=== PATIENT | female | born 1965 | race Caucasian/White ===

== ENCOUNTER 2017-09-05 22:29 | Emergency (ER) | payer MEDICAID, OTHER ==
[~2017-09-05] VITALS: Ht 154.9 cm; Wt 102.1 kg
[~2017-09-05 22:29] MED LIST: LEVO500T6 PO; METR250T2 PO
[2017-09-05 22:45] VITALS: BP 145/62
--- NOTE | 2017-09-05 22:55 | NUR ---
51/F BIBA FOR CHEST PAIN SINCE YESTERDAY MORNING. PT REPORTS 8/10 PRESSURE, NONRADIATING, CONSTANT. PT REPORTS SHE WAS LYING DOWN PRIOR TO CP ONSET. DENIES TAKING MED FOR CP. DENIES SOB, SATS 98%RA, 125HR. AOX4, ABLE TO SPEAK AT FULL LENGTH WITHOUT DIFFICULTIES. PT IS JAUNDICED. PMH: DM, ANEMIA, CIRRHOSIS. EKG DONE. PT PLACED ON GAS DISTRIBUTION SUPERVISOR AND PULSE OX.
--- NOTE | 2017-09-05 22:55 | NUR ---
PT PLACED IN BED 11 BY EMS.
[2017-09-05] MEDS ORDERED: ONDANSETRON 4 MG/2 ML VIAL IVP ONE (23:05)
[2017-09-05] MEDS ORDERED: MORPHINE SULFATE 2 MG/ML SYR IVP ONE (23:05)
[2017-09-05 23:41] LABS: CARBON DIOXIDE 24.7 mmol/L (21-32); CREATININE 1.2 mg/dL (0.6-1.3); POTASSIUM 4.7 mmol/L (3.5-5.1)
[2017-09-05 23:46] LABS: PROTHROMBIN TIME 13.2 secs (10.8-13.4)
[2017-09-05 23:47] LABS: ALBUMIN 2.9 g/dL (3.4-5.0); TOTAL BILIRUBIN 6.1 mg/dL (0.0-1.0)
--- NOTE | 2017-09-05 23:48 | NUR ---
Patient being evaluated by physician at bedside.
[2017-09-05 23:55] LABS: LYMPHOCYTES # (AUTO) 0.9 K/uL (2.5-16.5); MEAN CORPUSCULAR HEMOGLOBIN 35 pg (27-31); MONOCYTES # (AUTO) 0.3 K/uL (0.8-1.0); NEUTROPHILS # (AUTO) 2.3 K/uL (1.8-7.7)
[2017-09-05 23:57] LABS: BASOPHILS % (AUTO) 0.8 % (0.0-2.0); LYMPHOCYTES % (AUTO) 25.8 % (20.5-51.1); MEAN CORPUSCULAR HGB CONC 35 g/dL (33-37); MEAN CORPUSCULAR VOLUME 101 fL (80-94); MONOCYTES % (AUTO) 9.6 % (1.7-9.3); NEUTROPHILS % (AUTO) 62.8 % (42.2-75.2); PLATELET COUNT (AUTO) 109 K/uL (140-450); RED BLOOD CELL COUNT(AUTO) 1.35 MIL/uL (4.20-5.40); RED CELL DISTRIBUTION WIDTH 19.3 % (11.6-13.7); WHITE BLOOD COUNT (AUTO) 3.5 K/uL (4.8-10.8)
[2017-09-06 00:03] LABS: HEMOGLOBIN 4.7 g/dL (12.0-16.0)
[2017-09-06 00:04] LABS: HEMATOCRIT 13.7 % (36-48)
--- NOTE | 2017-09-06 00:45 | NUR ---
ER MD HOWELL MADE AWARE OF CURRENT VS, NO FURTHER ORDERS RECEIVED
[2017-09-06 01:32] VITALS: BP 131/57
--- NOTE | 2017-09-06 01:32 | NUR ---
Patient discharged with v/s stable. Written and verbal after care instructions given and explained. Patient verbalized understanding. Wheel Chair Assisted with ROGER CADENA to car. All questions addressed prior to discharge. Advised to follow up with PMD. IV removed, catheter intact and site benign. Applied folded 4x4 gauze and tape to stop bleeding. Addendum: 09/06/17 at 0135 by HOMER DAUGHTER ADVISED TO SETUP APPOINTMENT WITH [facility] SOON POSSIBLE
== END 2017-09-06 01:32 | disposition home or self-care (01) ==
LOC: MED 22:29
DX: D58.9 Hereditary hemolytic anemia, unspecified (principal); E80.6 Other disorders of bilirubin metabolism; Z88.1 Allergy status to other antibiotic agents; K74.60 Unspecified cirrhosis of liver
CPT/HCPCS: 36415; 71010; 80053; 82140; 82948; 83625; 83880; 84100; 84484; 85025; 85610; 85730; 86886; 86900; 86901; 86920; 93005; 96374; 96375; 99285; J2270; J2405; Q0092

== ENCOUNTER 2018-09-25 22:44 | Inpatient (IN) | payer OTHER ==
[~2018-09-25] VITALS: Ht 167.6 cm; Wt 97.5 kg
[2018-09-25 22:48] VITALS: BP 117/72
--- NOTE | 2018-09-25 22:51 | NUR ---
PT TAKEN TO BED 5
--- NOTE | 2018-09-25 23:40 | NUR ---
PT BIB DAUGHTER FOR DIARRHEA FOR 3 DAYS AND "COLD" SYMPTOMS AND PAIN TO LEFT FLANK. PT HAS HX OF LIVER CIRROHSIS, AND GALL BLADDER RUPTURE. PT SKIN IS DRY, AND JAUNDICED. PT IS LAYING IN BED , AWAKE , DAUGHTER AT BEDSIDE. ABD IS ROUND, SOFT, NON TENDER , HYPOACTIVE BS X4.
--- NOTE | 2018-09-25 23:48 | NUR ---
Dr. Martinez evaluating patient at bedside.
--- NOTE | 2018-09-26 00:20 | NUR ---
Patti bailey in [facility] - 09/26/18 at [address]18 [address] JOSE PT [address] CT SCAN
--- NOTE | 2018-09-26 00:20 | NUR ---
PT TO XRAY
[2018-09-26 00:42] LABS: MEAN CORPUSCULAR HEMOGLOBIN 32 pg (27-31); MEAN CORPUSCULAR HGB CONC 33 g/dL (33-37); MEAN CORPUSCULAR VOLUME 98.4 fL (80-94); PLATELET COUNT (AUTO) 175 K/uL (140-450); RED BLOOD CELL COUNT(AUTO) 1.88 MIL/uL (4.20-5.40); WHITE BLOOD COUNT (AUTO) 10.7 K/uL (4.8-10.8)
--- NOTE | 2018-09-26 00:49 | NUR ---
PT RETURN FROM RADIOLOGY
--- NOTE | 2018-09-26 01:00 | NUR ---
PT LAYING IN BED SLEEPIN, EASILY AROUSABLE, VSS, WILL CONTINUE TO MONITOR.
[2018-09-26 01:12] LABS: PROTHROMBIN TIME 13.1 secs (10.8-13.4)
--- NOTE | 2018-09-26 01:15 | NUR ---
IN N OUT CATHERTERIZATION PERFORMED, APPROX 400 ML YELLOW CLEAR URINE RETURNED, PT TOLERATED PROCEDURE WELL, SPECIMEN SENT TO LAB, PT POSITIONED TO COMFORT AFTER.
[2018-09-26 01:25] LABS: ANION GAP 17.4 (8-16); CREATININE 1.4 mg/dL (0.6-1.3); POTASSIUM 4.4 mmol/L (3.5-5.1); TOTAL BILIRUBIN 2.1 mg/dL (0.0-1.0)
[2018-09-26 01:35] LABS: HEMATOCRIT 18.6 % (36-48); HEMOGLOBIN 6.1 g/dL (12.0-16.0)
[2018-09-26 01:38] LABS: LYMPHOCYTES % (MANUAL) 5 % (20-46); MONOCYTES % (MANUAL) 3 % (5-12)
[2018-09-26] MEDS ORDERED: INSULIN REGULAR, HUMAN 100 UNIT/ML VIAL IVP ONE (01:40)
[2018-09-26] MEDS ORDERED: NACL 0.9% 1,000 ML IV ONE ×3 (01:40→02:15)
[2018-09-26] MEDS ORDERED: metroNIDAZOLE 500 MG/NS PREMIX 100 ML IV ONE (01:45)
[2018-09-26] MEDS ORDERED: MORPHINE SULFATE 4 MG/ML SYR IVP PRN (02:15)
[2018-09-26] MEDS ORDERED: DEXTROSE 50% 50 ML SYR IVP PRN (02:15)
[2018-09-26] MEDS: NACL 0.9% 1,000 ML IV SCH ×3 (02:15→18:15)
[2018-09-26] MEDS ORDERED: ACETAMINOPHEN 325 MG TAB PO PRN (02:15)
--- NOTE | 2018-09-26 02:30 | NUR ---
PT DIAPER CHANGED, SCANT AMOUNT OF DIARRHEA NOTED, PT POSITIONED TO COMFORT AFTER.
--- NOTE | 2018-09-26 03:00 | NUR ---
ADMITTED PT FROM ER VIA [facility]. DX: ABD PAIN, DIARRHEA, ANEMIA, HYPERGLYCEMIA. AAOX4. NO C/O PAIN AT THIS TIME. NO RESP DISTRESS NOTED. ON ROOM AIR. PT'S DAUGHTER AT BEDSIDE. IV TO LEFT FA #22G, PATENT AND INTACT. ORIENTED PT TO ROOM. DISCUSSED PLAN OF CARE, PT VERBALIZED UNDERSTANDING. SAFETY PRECAUTION IN PLACE. CALL LIGHT WITHIN REACH.
--- NOTE | 2018-09-26 03:00 | NUR ---
Patient will be admitted to care of DR PANDA. Admited to TELE. Will go to [id number]. Belongings list completed. Report to SURINDER RUBIN.
[2018-09-26] MEDS: LEVOFLOXACIN 250 MG/D5 PREMIX 50 ML IV SCH (03:36)
[2018-09-26 04:00] VITALS: BP 104/56
[2018-09-26] MEDS: BLOOD GLUCOSE MONITORING 1 DEV DEV FS SCH ×6 (04:09→23:34)
[2018-09-26] MEDS: INSULIN LISPRO SLIDING SCALE 100 UNITS/ML VIAL SUBQ PRN ×6 (04:10→23:33)
--- NOTE | 2018-09-26 04:10 | NUR ---
BLOOD SUGAR CHECKED 585. DR. ZAPATA ORDERED 15 UNITS HUMALOG SUBQ.
[2018-09-26 05:03] LABS: APPEARANCE,URINE CLEAR (CLEAR); BILIRUBIN,URINE NEGATIVE (NEGATIVE); BLOOD, URINE NEGATIVE (NEGATIVE); COLOR,URINE YELLOW (YELLOW); LEUKOCYTE ESTERASE ,URINE NEGATIVE (NEGATIVE); NITRITE, URINE NEGATIVE (NEGATIVE); RBC,URINE 0-5 (RARE) /HPF (0-5); UGLUCOSE 3+ (NEGATIVE); WBC,URINE 0-5 (RARE) /HPF (0-5)
--- NOTE | 2018-09-26 06:16 | NUR ---
PT LEFT THE UNIT FOR CT ABDOMEN/PELVIS W/O CONTRAST. NO C/O PAIN OR SOB. PT IN STABLE CONDITION.
--- NOTE | 2018-09-26 06:30 | NUR ---
PT CAME BACK FROM CT. NO C/O PAIN OR SOB.
--- NOTE | 2018-09-26 07:30 | NUR ---
ENDORSED PT TO DAY SHIFT NURSE. PT IN STABLE CONDITION.
[2018-09-26 08:00] VITALS: BP 116/53
--- NOTE | 2018-09-26 08:00 | NUR ---
SPOKE WITH DR PANDA, REPORTED LACTIC ACID 2.5. DR PANDA SAID WILL REPEAT TOMORROW.
--- NOTE | 2018-09-26 08:21 | NUR ---
PATIENT HAS BEEN SCREENED AND CATEGORIZED HIGH NUTRITION RISK. PATIENT WILL BE SEEN WITHIN 1-2 DAYS OF ADMISSION. 09/26/18-09/27/[address]
[2018-09-26] MEDS: INSULIN LANTUS 100 UNITS/ML 10 ML VIAL SUBQ SCH ×2 (08:42→21:22)
--- NOTE | 2018-09-26 08:45 | NUR ---
PAGED DR JACKSON WHO IS COVERING DR PANDA, REGARDING BS 469. HUMALOG 14 UNITS GIVEN ACCORDING TO SLIDING SCALE. LANTUS 12UNITS GIVEN SCHEDULED. Addendum: 09/26/18 at 0913 by Wiliam Ventura RN STILL WAITING FOR CALL BACK
--- NOTE | 2018-09-26 09:25 | NUR ---
DR PANDA CALLED BACK, NO NEW ORDERS FOR BLOOD SUGAR AT THIS TIME.
[2018-09-26 09:28] LABS: BASOPHILS % (AUTO) 0.1 % (0.0-2.0); EOSINOPHILS % (AUTO) 0.3 % (0.0-4.0); LYMPHOCYTES # (AUTO) 0.6 K/uL (2.5-16.5); LYMPHOCYTES % (AUTO) 5.9 % (20.5-51.1); MEAN CORPUSCULAR HEMOGLOBIN 33 pg (27-31); MEAN CORPUSCULAR HGB CONC 34 g/dL (33-37); MEAN CORPUSCULAR VOLUME 97.6 fL (80-94); MONOCYTES # (AUTO) 0.3 K/uL (0.8-1.0); MONOCYTES % (AUTO) 3.4 % (1.7-9.3); NEUTROPHILS # (AUTO) 8.5 K/uL (1.8-7.7); NEUTROPHILS % (AUTO) 90.3 % (42.2-75.2); PLATELET COUNT (AUTO) 157 K/uL (140-450); RED BLOOD CELL COUNT(AUTO) 1.55 MIL/uL (4.20-5.40); RED CELL DISTRIBUTION WIDTH 14.5 % (11.6-13.7); WHITE BLOOD COUNT (AUTO) 9.5 K/uL (4.8-10.8)
[2018-09-26 09:54] LABS: HEMATOCRIT 15.1 % (36-48); HEMOGLOBIN 5.1 g/dL (12.0-16.0)
--- NOTE | 2018-09-26 10:15 | NUR ---
SPOKE WITH DR PANDA REGARDING HGB 5.1, MADE DR AWARE THAT 1 UNIT RBC ORDERED BY ER DOC HOWEVER, STILL WAITING FOR BLOOD BANK TO MATCH PT'S ANTIBODIES. DR PANDA SAID TO ORDER TOTAL OF 2 BAG SINCE MATCHING TAKES A LONG TIME. ONE ADDITIONAL BAG ORDERED, CALLED BLOOD BANK, STILL NOT READY BUT WILL LET ME KNOW VERNA.
[2018-09-26 10:33] LABS: ALBUMIN 2.5 g/dL (3.4-5.0); ANION GAP 16.4 (8-16); CARBON DIOXIDE 22.1 mmol/L (21-32); CREATININE 1.1 mg/dL (0.6-1.3); POTASSIUM 3.5 mmol/L (3.5-5.1); TOTAL BILIRUBIN 1.7 mg/dL (0.0-1.0)
--- NOTE | 2018-09-26 10:48 | NUR ---
CM NOTE PER YESSI # [phone] [facility] (PCP[facility], PATIENT IS SCHEDULED FOR OUTPATIENT FOLLOW UP ON OCTOBER 03, 2018 9:30 AM AT THE CLINIC IN [address] [place] [address]. I GAVE A COPY OF THE SCHEDULE TO THE PATIENT.
[2018-09-26] MEDS ORDERED: INSU100S22 SUBQ (11:20)
[2018-09-26 12:00] VITALS: BP 139/48
--- NOTE | 2018-09-26 12:04 | NUR ---
CM NOTE CHART REVIEW DONE
--- NOTE | 2018-09-26 12:15 | NUR ---
REPORTED TO DR PANDA, PT HAS A BUMP ON THE RIGHT BUTTOCK CLOSE TO ANUS. DR PANDA SEEN PT AND THE BUMP. STATED TO COVER THE BUMP WITH GAUZE AND PLASTIC DRESSING TO PREVENT INFECTION.
[2018-09-26] MEDS: metroNIDAZOLE 500 MG/NS PREMIX 100 ML IV SCH ×2 (12:34→21:11)
--- NOTE | 2018-09-26 14:07 | NUR ---
CALLED Dr Hoover OFFICE, DR HOOVER IS NOT AVAILABLE. OFFICE SAID WILL LET THE DOCTOR WHO IS COVERING TO CALL ME BACK.
--- NOTE | 2018-09-26 14:36 | NUR ---
09/26/18 RD INITIAL ASSESSMENT COMPLETED PLEASE REFER TO NUTRITION ASSESSMENT UNDER CARE ACTIVITY FOR ESTIMATED NUTRITIONAL NEEDS. 1. CONTINUE CLEAR LIQUID DIET TOLERATED 2. IF/WHEN PT IS MEDICALLY STABLE CONSIDER ADVANCING TO [facility] [address] PROVIDED NUTRITION EDUCATION ON CARBOHYDRATE COUNTING AND LABEL READING. PT ACCEPTED. 4. RD TO FOLLOW-UP 3-5 DAYS, MODERATE RISK TAV[address]ES [address]
--- NOTE | 2018-09-26 15:00 | NUR ---
DR RIOS SEEN PT. DR RIOS ASSESS THE BUMP ON PT'S BUTTOCK, WANTS TO DO I/D AND EGD FOR PT. PT AGREES.
[2018-09-26 16:00] VITALS: BP 119/39
--- NOTE | 2018-09-26 18:20 | NUR ---
BLOOD TRANSFUSION STARTED. NO S/S OF ACUTE DISTRESS.
--- NOTE | 2018-09-26 18:30 | NUR ---
PT SIGNED CONSENT FOR EGD AND I/D. DAUGHTER AT BEDSIDE. PT PREFER TO USE HER DAUGHTER TO TRANSLATE.
--- NOTE | 2018-09-26 19:30 | NUR ---
ENDORSED PT TO HYPERION ANALYST RN. PT IN STABLE CONDITION.
--- NOTE | 2018-09-26 19:31 | NUR ---
RECEIVED REPORT FROM [facility] NURSE SHAH AT BEDSIDE FOR CONTINUITY OF CARE. PT AAOX4 & WELSH SPEAKING. DAUGHTER AT BEDSIDE. NO SOB NO S/S OF DISTRESS ON RA. IV NOTED RFA 22G BLOOD TRANSFUSION AT 120ML/HR. BED LOWERED CALL LIGHT WITHIN REACH WILL CONTINUE TO MONITOR.
[2018-09-26 20:00] VITALS: BP 119/48
--- NOTE | 2018-09-26 21:00 | NUR ---
PIPPA CHAVEZ CAME BY TO SEE PT. POC IS TO HAVE EGD AND I&D, THEN TRANSFER TO [facility] FOR CONTINUATION OF CHEMO MEDS. WILL CONTINUE TO MONITOR.
--- NOTE | 2018-09-26 21:05 | NUR ---
BLOOD TRANFUSION ENDED. WILL START ABX AND THEN START 2ND BAG OF 1 UNIT PRBC.
--- NOTE | 2018-09-26 21:20 | NUR ---
CALLED MASSIEL TO LET HIM KNOW PT BG IS 420. MS AWARE STATED TO GIVE 14 UNITS HUMALOG AND 12 UNITS OF LANTUS WILL CONTINUE TO MONITOR.
--- NOTE | 2018-09-26 22:55 | NUR ---
STARTED 2 UNIT OF PRBC. NO REACTION NOTED. WILL CONTINUE TO TRANSFUSE.
[2018-09-26 23:46] VITALS: BP 120/49
--- NOTE | 2018-09-27 | NUR ---
NPO AFTER MIDNIGHT.
--- NOTE | 2018-09-27 01:25 | NUR ---
BLOOD TRANSFUSION ENDED. CBC IN AM.
[2018-09-27] MEDS: NACL 0.9% 1,000 ML IV SCH ×3 (02:15→18:15)
[2018-09-27 04:00] VITALS: BP 117/43
[2018-09-27] MEDS: LEVOFLOXACIN 250 MG/D5 PREMIX 50 ML IV SCH (04:16)
[2018-09-27] MEDS: BLOOD GLUCOSE MONITORING 1 DEV DEV FS SCH ×5 (04:17→20:23)
[2018-09-27] MEDS: INSULIN LISPRO SLIDING SCALE 100 UNITS/ML VIAL SUBQ PRN ×5 (04:21→20:30)
[2018-09-27] MEDS: metroNIDAZOLE 500 MG/NS PREMIX 100 ML IV SCH ×3 (05:12→20:12)
[2018-09-27 06:16] LABS: BASOPHILS % (AUTO) 0.3 % (0.0-2.0); EOSINOPHILS # (AUTO) 0.1 K/uL (0-0.4); LYMPHOCYTES # (AUTO) 0.6 K/uL (2.5-16.5); LYMPHOCYTES % (AUTO) 6.5 % (20.5-51.1); MEAN CORPUSCULAR HEMOGLOBIN 32 pg (27-31); MEAN CORPUSCULAR HGB CONC 34 g/dL (33-37); MEAN CORPUSCULAR VOLUME 93.5 fL (80-94); MONOCYTES # (AUTO) 0.3 K/uL (0.8-1.0); MONOCYTES % (AUTO) 2.9 % (1.7-9.3); NEUTROPHILS % (AUTO) 89.3 % (42.2-75.2); PLATELET COUNT (AUTO) 141 K/uL (140-450); RED BLOOD CELL COUNT(AUTO) 2.14 MIL/uL (4.20-5.40); RED CELL DISTRIBUTION WIDTH 17.2 % (11.6-13.7); WHITE BLOOD COUNT (AUTO) 8.9 K/uL (4.8-10.8)
[2018-09-27 06:53] LABS: ALBUMIN 2.3 g/dL (3.4-5.0); ANION GAP 12.5 (8-16); CARBON DIOXIDE 23.6 mmol/L (21-32); CREATININE 0.8 mg/dL (0.6-1.3); MAGNESIUM 1.7 mg/dL (1.8-2.4); PHOSPHORUS 1.8 mg/dL (2.5-4.9); POTASSIUM 3.1 mmol/L (3.5-5.1); TOTAL BILIRUBIN 2.3 mg/dL (0.0-1.0)
--- NOTE | 2018-09-27 07:10 | NUR ---
ENDORSED REPORT TO DAYSHIFT NURSE AT BEDSIDE FOR CONTINUITY OF CARE.
[2018-09-27 07:15] LABS: HEMOGLOBIN 6.8 g/dL (12.0-16.0)
--- NOTE | 2018-09-27 07:15 | NUR ---
RECEIVED CRITICAL LAB HGB 6.8 HCT 20.0. PAGED MD PANDA. LET SELMA AM NURSE KNOW OF RESULTS AND TO TALK TO MD IN CASE I AM NOT HERE. ENDORSED TO SELMA.
--- NOTE | 2018-09-27 07:32 | NUR ---
RECEIVED REPORT FROM WILDLAND FIRE FIGHTER SPECIALIST NURSE AT BEDSIDE FOR CONTINUITY OF CARE. PT AAOX4 & AZERBAIJANI SPEAKING. NO SOB NO S/S OF DISTRESS ON RA. IV NOTED RFA 22G BLOOD TRANSFUSION AT 125ML/HR. BED LOWERED CALL LIGHT WITHIN REACH WILL CONTINUE TO MONITOR.
[2018-09-27] MEDS ORDERED: fentaNYL 0.05 MG/ML VIAL ONE (07:43)
[2018-09-27] MEDS ORDERED: MIDAZOLAM 2 MG/2 ML VIAL ONE (07:44)
--- NOTE | 2018-09-27 07:45 | NUR ---
PT TAKEN FOR EGD PROCEDURE. PT TAKEN IN STABLE CONDITION.
--- NOTE | 2018-09-27 07:50 | NUR ---
RECEIVED CALL BACK FROM . CRITICAL VALUE OF HGB:6.8. HCT:20.0 REPORTED TO HER.
[2018-09-27 08:00] VITALS: BP 127/47
[2018-09-27] MEDS ORDERED: MIDAZOLAM 2 MG/2 ML VIAL IVP ONE (08:20)
[2018-09-27] MEDS ORDERED: fentaNYL 0.05 MG/ML VIAL IVP ONE (08:20)
--- NOTE | 2018-09-27 08:40 | NUR ---
PT RETURNED FROM EGD PROCEDURE. PER NOTES, EGD FOR H.PYLORI WAS NEGATIVE. EGD NORMAL. NO POLYPS REMOVED. I&D ALSO DONE TO DRAIN ABSCESS ON BUTTOCK. WOUND DRESSING APPLIED. DRY AND INTACT. PT IN STABLE CONDITION AT THIS MAU. CALL LIGHT WITHIN REACH, BED IN LOW POSITION.
--- NOTE | 2018-09-27 09:56 | NUR ---
ADMINISTERED MORNING MEDS TO PT. PT TOLERATED WELL. ALSO ADMINISTERED HUMALOG 6U FOR BS OF 280 PER SLIDING SCALE. ALL NEEDS MET AT THIS TIME. WILL ROUND FREQUENTLY. CALL LIGHT WITHIN REACH. BED IN LOW POSITION.
[2018-09-27] MEDS: PANTOPRAZOLE 40 MG INJ VIAL IVP SCH (10:01)
[2018-09-27] MEDS: INSULIN LANTUS 100 UNITS/ML 10 ML VIAL SUBQ SCH ×2 (10:07→20:25)
--- NOTE | 2018-09-27 11:29 | NUR ---
PT ASLEEP IN BED. IN STABLE CONDITION. NO SIGNS OF SOB OR DISTRESS NOTED. WILL CONTINUE TO ROUND FREQUENTLY.
[2018-09-27 12:00] VITALS: BP 117/49
--- NOTE | 2018-09-27 14:20 | NUR ---
PT HAVING MULTIPLE BOWEL MOVEMENTS. DRESSING FOR I&D DONE FOR EACH TIME SOILED. DR. PANDA NOTIFIED OF PT DIARRHEA. WILL MONITOR FOR BLEEDING OF STOOL OR I&D SITE.
[2018-09-27] MEDS ORDERED: MAGNESIUM SULFATE 1GM in DEXTROSE 5% 100 ML PREMIX IV SCH (15:00)
[2018-09-27] MEDS ORDERED: MAG SULF 2000 MG/WATER PREMIX 50 ML IV SCH (15:00)
[2018-09-27] MEDS ORDERED: POTASSIUM CHLORIDE 10 MEQ TABER PO SCH (15:00)
[2018-09-27] MEDS ORDERED: MAG SULF 2000 MG/WATER PREMIX 50 ML IV ONE (15:30)
--- NOTE | 2018-09-27 15:36 | NUR ---
PT SLEEPING UNABLE TO GIVE SPUTUM SAMPLE
--- NOTE | 2018-09-27 15:48 | NUR ---
PER DR PANDA ONCOLOGIST DR ANDRADE WANTED PATIENT TO BE TRANSFERRED TO [facility] FOR CHEMO THERAPY. I CALLED HENNY GUEST EXPERIENCE CAPTAIN FOR [facility] PROVIDED THE AUTHORIZATION FOR [place] [id number] AND [facility] [id number]. CALLED [place] FAXED ALL THE PAPER WORK AND WAITING FOR CALL BACK
[2018-09-27 16:00] VITALS: BP 104/55
--- NOTE | 2018-09-27 17:24 | NUR ---
ENDORSED PT TO TABLE MACHINE OPERATOR FOR CONTINUITY OF CARE. PT IN STABLE CONDITION.
--- NOTE | 2018-09-27 17:24 | NUR ---
ENDORSED PT TO BEAUTY SCHOOL INSTRUCTOR FOR CONTINUITY OF CARE. PT IN STABLE CONDITION AT THIS TIME.
--- NOTE | 2018-09-27 17:36 | NUR ---
PT PICC LINE INSERTED BY PICC LINE NURSE. PT TOLERATED PROCEDURE WELL. NO SIGNS OF BLEEDING OR SWELLING NOTED. PT STATES MINIMAL PAIN AT SITE. AWAITING X-RAY TO VERIFY LOCATION OF PICC.
--- NOTE | 2018-09-27 17:53 | NUR ---
PT WAS INSTRUCTED ON GIVING SPUTUM SAMPLE WILL ENDORSE TO DYNAMITE RECLAIMER.
--- NOTE | 2018-09-27 19:24 | NUR ---
ENDORSED PT TO TELEPHONE SWITCHBOARD OPERATOR FOR CONTINUITY OF CARE. PT IN STABLE CONDITION AT THIS TIME.
--- NOTE | 2018-09-27 19:32 | NUR ---
SPUTUM CUP LEFT AT BEDSIDE AND EXPLAINED IMPORTANCE. PT UNABLE TO PRODUCE SPUTUM AT THIS TIME.
--- NOTE | 2018-09-27 19:33 | NUR ---
RECEIVED PT IN STABLE CONDITION FROM AM NURSE. AWAKE,ALERT AND ORIENTED X4. ON TELE MONITOR-SR. WITH NO C/O ANY DISCOMFORT NOR PAIN NOTED. PLAN OF CARE DISCUSSED ANDS VERBALIZED UNDERSTANDING. IVF INFUSING WELL ON THE RT FA#[id number]. CLEAR AND PATENT. BED ON LOWEST POSITION. CALL LIGHT PLACED WITHIN EASY REACH. INSTRUCTED TO CALL IF NEED ASSISTANCE. WILL CONTINUE TO MONITOR.
[2018-09-27 19:50] VITALS: BP 132/56
[2018-09-27 19:59] VITALS: BP 132/56
--- NOTE | 2018-09-27 20:30 | NUR ---
BLOOD SUGAR WAS CHECKED RESULT 305. INSULIN COVERAGE HUMALOG 68 UNITS SUB Q GIVEN. ALSO LANTUS 12 UNITS SCHEDULED GIVEN. PROVIDED WITH SOME APPLE JUICE. WILL CONTINUE TO MONITOR.
--- NOTE | 2018-09-27 22:00 | NUR ---
PT HAD X3 DIARRHEA IN SMALL AMOUNT. ANAL AREA WITH OPEN ABSCESS CLEANED WITH NS AND DRESSING APPLIED.
[2018-09-28] MEDS: BLOOD GLUCOSE MONITORING 1 DEV DEV FS SCH ×6 (00:08→20:00)
[2018-09-28] MEDS: INSULIN LISPRO SLIDING SCALE 100 UNITS/ML VIAL SUBQ PRN ×6 (00:08→21:53)
--- NOTE | 2018-09-28 00:08 | NUR ---
BLOOD SUGAR CHECKED RESULT 325, INSULIN COVERAGE GIVEN SUBQ. WILL CONTINUE TO MONITOR.
[2018-09-28 00:10] VITALS: BP 131/58
--- NOTE | 2018-09-28 01:10 | NUR ---
SURINDER LANG CHARGE TRIED TO START A NEW IV ACCESS X1 BUT UNABLE TO GET ONE. CALLED ER AND STILL BUSY . WILL WILL TRY LATER .
[2018-09-28] MEDS: NACL 0.9% 1,000 ML IV SCH ×4 (02:15→18:18)
--- NOTE | 2018-09-28 03:00 | NUR ---
PT ASLEEP. NO S/S OF ANY DISCOMFORT NOTED.
[2018-09-28] MEDS: LEVOFLOXACIN 250 MG/D5 PREMIX 50 ML IV SCH (03:39)
--- NOTE | 2018-09-28 03:46 | NUR ---
BLOOD SUGAR THIS AM 288. INSULIN COVERAGE GIVEN ORDERED.
[2018-09-28 03:53] VITALS: BP 112/52
[2018-09-28] MEDS: metroNIDAZOLE 500 MG/NS PREMIX 100 ML IV SCH ×3 (05:29→21:59)
[2018-09-28 07:08] LABS: BASOPHILS % (AUTO) 0.3 % (0.0-2.0); EOSINOPHILS # (AUTO) 0.1 K/uL (0-0.4); EOSINOPHILS % (AUTO) 0.9 % (0.0-4.0); LYMPHOCYTES # (AUTO) 0.4 K/uL (2.5-16.5); LYMPHOCYTES % (AUTO) 6.6 % (20.5-51.1); MEAN CORPUSCULAR HEMOGLOBIN 31 pg (27-31); MEAN CORPUSCULAR HGB CONC 32 g/dL (33-37); MEAN CORPUSCULAR VOLUME 95.6 fL (80-94); MONOCYTES # (AUTO) 0.2 K/uL (0.8-1.0); MONOCYTES % (AUTO) 3.6 % (1.7-9.3); NEUTROPHILS # (AUTO) 5.2 K/uL (1.8-7.7); NEUTROPHILS % (AUTO) 88.6 % (42.2-75.2); PLATELET COUNT (AUTO) 110 K/uL (140-450); RED BLOOD CELL COUNT(AUTO) 2.13 MIL/uL (4.20-5.40); RED CELL DISTRIBUTION WIDTH 18.3 % (11.6-13.7); WHITE BLOOD COUNT (AUTO) 5.9 K/uL (4.8-10.8)
--- NOTE | 2018-09-28 07:20 | NUR ---
ENDORSED PT IN STABLE CONDITION TO AM NURSE.
--- NOTE | 2018-09-28 07:25 | NUR ---
RECEIVED CRITICAL VALUE FOR PT. HGB 6.[address] PANDA WAS PAGED. AWAITING DR CID.
[2018-09-28 07:26] LABS: HEMATOCRIT 20.3 % (36-48); HEMOGLOBIN 6.5 g/dL (12.0-16.0)
--- NOTE | 2018-09-28 07:26 | NUR ---
RECEIVED REPORT FROM ACADEMIC ADVISER NURSE MIHIR. AWAKE,ALERT AND ORIENTED X4. ON TELE MONITOR-SR. WITH NO C/O ANY DISCOMFORT NOR PAIN NOTED. PLAN OF CARE DISCUSSED ANDS VERBALIZED UNDERSTANDING. IVF INFUSING WELL ON THE LEFT FA #[id number]. CLEAR AND PATENT. BED ON LOWEST POSITION. CALL LIGHT PLACED WITHIN EASY REACH. INSTRUCTED TO CALL IF NEED ASSISTANCE. WILL CONTINUE TO MONITOR.
[2018-09-28 07:30] LABS: ALBUMIN 2.2 g/dL (3.4-5.0); ANION GAP 10.9 (8-16); CARBON DIOXIDE 22.5 mmol/L (21-32); CREATININE 0.9 mg/dL (0.6-1.3); POTASSIUM 3.4 mmol/L (3.5-5.1); TOTAL BILIRUBIN 1.9 mg/dL (0.0-1.0)
[2018-09-28 08:00] VITALS: BP 134/59
[2018-09-28] MEDS: PANTOPRAZOLE 40 MG INJ VIAL IVP SCH (09:43)
[2018-09-28] MEDS: INSULIN LANTUS 100 UNITS/ML 10 ML VIAL SUBQ SCH ×2 (09:45→21:56)
--- NOTE | 2018-09-28 10:14 | NUR ---
CALLED [facility] SPOKE WITH JAY DEALSUCKER MACHINE OPERATOR REGARDING BED AVAILABILITY PER JAY THERE IS NO BED AVAILABLE , WILL CALL WHEN BED AVAILABLE
[2018-09-28 12:00] VITALS: BP 107/55
--- NOTE | 2018-09-28 12:03 | NUR ---
PT RESTING IN BED. NO SIGNS OF DISTRESS NOTED. WILL ROUND FREQUENTLY ON PT.
[2018-09-28 13:06] LABS: LACTATE DEHYDROGENASE 230 IU/L (119-226)
[2018-09-28] MEDS ORDERED: INSULIN LANTUS 100 UNITS/ML 10 ML VIAL SUBQ SCH (14:05)
--- NOTE | 2018-09-28 14:17 | NUR ---
DR PANDA IN THE UNIT NEW ORDER PATIENT CAN GO TO ONCOLOGY MED SURG STATUS . CALLED SILVERIO WEINSTEIN SPOKE WITH JAY NOTIFIED THAT PT CAN GO TO MED SURGE STATUS , HE SAID HE WILL CALL BACK WHEN HE HAS A MED SURGE BED.
[2018-09-28] MEDS ORDERED: POTASSIUM CHLORIDE 10 MEQ TABER PO SCH (15:00)
--- NOTE | 2018-09-28 15:21 | NUR ---
PT ASLEEP IN BED. IN STABLE CONDITION. NO SIGNS OF SOB OR DISTRESS NOTED. WILL CONTINUE TO ROUND FREQUENTLY.
[2018-09-28 16:00] VITALS: BP 118/61
--- NOTE | 2018-09-28 18:55 | NUR ---
SPUTUM CUP LEFT AT BEDSIDE AND EXPLAINED IMPORTANCE. PT UNABLE TO PRODUCE SPUTUM AT THIS TIME.
--- NOTE | 2018-09-28 19:26 | NUR ---
ENDORSED PT TO FANS CLERK ANA CONTINUITY OF CARE. PT IN STABLE CONDITION.
--- NOTE | 2018-09-28 19:56 | NUR ---
ENDORSED PT TO VEHICLE SERVICE AGENT ANA CONTINUITY OF CARE. PT IN STABLE CONDITION.
--- NOTE | 2018-09-28 19:58 | NUR ---
RECEIVED PT FROM SELMA RN PT MOZAMBICAN SPEAKER AAOX4, ON TELEMETRY SR, ON BED RES S/P I AND D PERIANAL ABSCESS AND ANEMIA DR GALLEGOS PENDING FOR BED AVAILABLE IN [facility], PT HAS IV ON LEFT ARM INFUSING WELL AT THIS TIME PT IS CLEANING FOR LIQUID STOOL INITIAL ASSESSMENT DONE
[2018-09-28 20:00] VITALS: BP 106/61
--- NOTE | 2018-09-28 21:00 | NUR ---
BLOOD SUGAR TEST 317 COVERAGE WITH 8 UNITS SUB Q HUMALOG FOLLOW PROTOCOL NOT DISTRESS NOTED ON TELE SR
[2018-09-29] VITALS: BP 104/60
--- NOTE | 2018-09-29 | NUR ---
PT HAS BEEN CHANGING LINEN FOR DIARRHEA THREE TIMES BLOOD SUGAR JANAE 249 FOLLOWING PROTOCOL FOR COVERING, PT ON TELEMETRY SR
[2018-09-29] MEDS: BLOOD GLUCOSE MONITORING 1 DEV DEV FS SCH ×5 (00:42→15:58)
[2018-09-29] MEDS: INSULIN LISPRO SLIDING SCALE 100 UNITS/ML VIAL SUBQ PRN ×5 (00:43→15:48)
[2018-09-29] MEDS: NACL 0.9% 1,000 ML IV SCH ×2 (02:28→10:54)
[2018-09-29] MEDS: LEVOFLOXACIN 250 MG/D5 PREMIX 50 ML IV SCH (03:26)
[2018-09-29 04:00] VITALS: BP 105/52
--- NOTE | 2018-09-29 04:00 | NUR ---
BLOOD SUGAR TEST 209 COVERAGE WITH 4 UNITS SUBQ HUMALOG FOLLOW PROTOCOL AND LINEN AND DRESSING HAS BEEN CHANGED ANY TIME PT HAS LIQUID STOOL
[2018-09-29] MEDS: metroNIDAZOLE 500 MG/NS PREMIX 100 ML IV SCH ×2 (05:14→13:08)
--- NOTE | 2018-09-29 06:30 | NUR ---
PT RESTING ON BED NOT DISTRESS NOTED IV ON LEFT ARM INFUSING WELL, PT ON LIQUID STOOL, DRESSING FROM I AND D ABSCESS ON PERIANAL ABSCESS HAS BEEN CHANGED ANY TIME PT HAD BOWL MOV OR VOIDING
--- NOTE | 2018-09-29 07:10 | NUR ---
PT IS ALERT UNABLE TO PRODUCE SPUTUM AT THIS TIME SAMPLE CUP LEFT AT BEDSIDE
[2018-09-29 07:11] LABS: MEAN CORPUSCULAR HEMOGLOBIN 31 pg (27-31); MEAN CORPUSCULAR HGB CONC 32 g/dL (33-37); MEAN CORPUSCULAR VOLUME 97.5 fL (80-94); PLATELET COUNT (AUTO) 87 K/uL (140-450); RED BLOOD CELL COUNT(AUTO) 2.03 MIL/uL (4.20-5.40); RED CELL DISTRIBUTION WIDTH 18.8 % (11.6-13.7); WHITE BLOOD COUNT (AUTO) 3.5 K/uL (4.8-10.8)
[2018-09-29 07:36] LABS: ALBUMIN 2.2 g/dL (3.4-5.0); ANION GAP 11.1 (8-16); CARBON DIOXIDE 21.5 mmol/L (21-32); CREATININE 0.9 mg/dL (0.6-1.3); POTASSIUM 3.6 mmol/L (3.5-5.1); TOTAL BILIRUBIN 1.7 mg/dL (0.0-1.0)
[2018-09-29 08:00] VITALS: BP 106/55
[2018-09-29 08:16] LABS: HEMATOCRIT 19.8 % (36-48); HEMOGLOBIN 6.3 g/dL (12.0-16.0)
[2018-09-29 08:17] LABS: LYMPHOCYTES % (MANUAL) 19 % (20-46); MONOCYTES % (MANUAL) 7 % (5-12)
--- NOTE | 2018-09-29 08:32 | NUR ---
RECEIVED BEDSIDE REPORT FROM ELECTRICAL WIRER NURSE. PATIENT AAOX4. PATIENT STATES SHE FEELS TOO WEAK TO AMBULATE. PATIENT ON FALL RISK PRECAUTIONS. PATIENT ON TELE MONITOR. IV ON L FA 22G INFUSING NS AT 125 ML/HR. IV CLEAN DRY AND INTACT. BED IN LOW POSITION, CALL LIGHT WITHIN REACH. WILL CONTINUE TO MONITOR.
[2018-09-29] MEDS: PANTOPRAZOLE 40 MG INJ VIAL IVP SCH (08:57)
[2018-09-29] MEDS: INSULIN LANTUS 100 UNITS/ML 10 ML VIAL SUBQ SCH (09:00)
--- NOTE | 2018-09-29 09:06 | NUR ---
ADMINISTERED SCHEDULED MEDS TO PATIENT. PATIENT TOLERATED WELL. WILL CONTINUE TO MONITOR.
--- NOTE | 2018-09-29 09:11 | NUR ---
CM NOTE RECEIVED CALL FROM CHARGE NURSE CHRISTIANE REGARDING ORDER FOR TRANSFER TO [facility] WRITTEN OVER THE WEEKEND PER TOMASZ OF [facility] ADMITTING PH# [phone], NO BED AVAILABLE AT THIS TIME BUT THEY WILL CONTINUE TO WORK ON IT. I GAVE TOMASZ THE NUMBER TO THE NURSING STATION WHERE PATIENT IS IN CASE A BED BECOMES AVAILABLE AT A LATER TIME TODAY. FAXED ORDER TO TRANSFER TO [facility] TO [facility]. SPOKE WITH [facility] CM ANILA Gann PH# [phone] WHO IS COVERING FOR ASSIGNED [facility] CM EDUARDO PH# [phone] AND GAVE HER AN UPDATE ON THE TRANSFER AND CONFIRMED WITH HER THE AUTHORIZATION# FOR [facility] [id number] AND FOR [facility] AUTHORIZATION# [id number]. CHARGE NURSE CHRISTIANE GALLEGOS.
--- NOTE | 2018-09-29 11:19 | NUR ---
PATIENT SLEEPING. ON ROOM AIR, NO DISTRESS NOTED. WILL CONTINUE TO MONITOR.
[2018-09-29 12:00] VITALS: BP 100/45
--- NOTE | 2018-09-29 13:54 | NUR ---
CM NOTE PER [facility] CM DIANNE PH# [phone], SHE IS THE ASSIGNED [facility] CM FOR THIS PATIENT AND SHE CLARIFIED AND CORRECTED THAT FOR [facility] AUTH# [id number] AND FOR [facility] MED TRANSPORT AUTH# [id number]. SPOKE WITH TOMASZ OF [facility] ADMITTING DEPT PH# [phone] TO FOLLOW UP, NO BED AVAILABLE AT THIS TIME BUT THEY ARE ANTICIPATING DISCHARGES TODAY SO A BED MIGHT BE AVAILABLE TOWARDS THE LATER TIME OF THE DAY. TOMASZ CONFIRMED THAT SHE HAS THE NUMBER TO THE NURSING STATION [facility] WHERE PATIENT IS TO INFORM ONCE A BED IS AVAILABLE. CHARGE NURSE CHRISTIANE GALLEGOS.
[2018-09-29] MEDS ORDERED: guaiFENesin 20 MG/ML UDC PO PRN (14:00)
--- NOTE | 2018-09-29 15:57 | NUR ---
CHANGED SOILED LINEN PADS OF PATIENT. RINSED WOUND WITH NS AND PAT DRY. COVERED WITH DRY GAUZE. WILL CONTINUE TO MONITOR.
[2018-09-29 16:00] VITALS: BP 108/49
--- NOTE | 2018-09-29 17:05 | NUR ---
NOTIFIED DR. HOPKINS OF HGB 6.3 AND HCT 19.9. DOCTOR DID NOT ORDER FOR BLOOD TRANSFUSION. CLARIFIED THAT SHE WILL BE TRANSFERRED TO [facility]. NO FURTHER ACTION NEEDED.
--- NOTE | 2018-09-29 17:52 | NUR ---
GAVE REPORT TO MATTI FROM [facility] VIA TELEPHONE. NURSE AWARE OF RN BEHAVIORAL HEALTH TIME AT 1900 BY [facility]. ANSWERED ALL QUESTIONS AND CONCERNS OF NURSE.
--- NOTE | 2018-09-29 19:30 | NUR ---
PAGED DR. PANDA. DR. ZAPATA COVERING FOR HER. ASKED IF PATIENT WILL CONTINUE ABX AT [facility]. DR. ZAPATA STATED NOT TO CONTINUE ABX.
--- NOTE | 2018-09-29 19:53 | NUR ---
GAVE REPORT TO [facility]. PATIENT ENDORSED IN STABLE CONDITION. PATIENT PROVIDED WITH PACKET AND EDUCATED TO CONTINUE WITH HOME MEDS. PATIENT INSTRUCTED TO FOLLOW UP WITH PCP. PATIENT VERBALIZED UNDERSTANDING OF GOING TO [place] FOR HIGHER LEVEL OF CARE.
[2018-09-30 06:16] LABS: LD2 FRACTION 32 % (25-40); LD5 FRACTION 9 % (4-20)
== END 2018-09-29 19:45 | disposition short-term general hospital (02) | DRG 660 ==
LOC: MED 22:44 → MTU 09-26 02:26
PROVIDERS: ADMIT Hospitalist; ATTEND Hospitalist
PROC: 30233N1 Transfusion of Nonautologous Red Blood Cells into Peripheral Vein, Percutaneous Approach (ICD-10-PCS; 2018-09-26)
PROC: 0D9Q3ZZ Drainage of Anus, Percutaneous Approach (ICD-10-PCS; 2018-09-27)
PROC: 0DB68ZX Excision of Stomach, Via Natural or Artificial Opening Endoscopic, Diagnostic (ICD-10-PCS; principal; 2018-09-27 08:00)
DX: D59.1 Other autoimmune hemolytic anemias (principal); E11.00 Type 2 diabetes mellitus with hyperosmolarity without nonketotic hyperglycemic-hyperosmolar coma (NKHHC); J18.9 Pneumonia, unspecified organism; K56.7 Ileus, unspecified; K61.0 Anal abscess; E44.1 Mild protein-calorie malnutrition; K74.60 Unspecified cirrhosis of liver; E86.0 Dehydration; E66.9 Obesity, unspecified; K21.0 Gastro-esophageal reflux disease with esophagitis; K62.89 Other specified diseases of anus and rectum; Z68.34 Body mass index [BMI] 34.0-34.9, adult; Z85.6 Personal history of leukemia; Z92.21 Personal history of antineoplastic chemotherapy; Z88.1 Allergy status to other antibiotic agents; Z79.899 Other long term (current) drug therapy; Z79.84 Long term (current) use of oral hypoglycemic drugs
CPT/HCPCS: 36415; 71046; 74022; 80053; 81001; 82140; 82948; 83010; 83036; 83605; 83625; 83735; 83880; 84100; 85025; 85045; 85610; 85730; 86677; 86870; 86886; 86900; 86901; 86920; 87040; 87045; 87070; 87081; 87086; 96361; 96365; 96375; 99285; C1758; C9113; J1815; J1956; J2250; J3010; J3475; J3490; J7030; P9016

== ENCOUNTER 2021-06-28 10:05 | Day surgery (SDC) | payer OTHER ==
[~2021-06-28] VITALS: Ht 167.6 cm; Wt 68.0 kg
[~2021-06-28 10:05] MED LIST changes: +INSU100S22 SUBQ; -LEVO500T6 PO; -METR250T2 PO
[2021-06-28] MEDS ORDERED: INSULIN REGULAR, HUMAN 100 UNIT/ML VIAL SUBQ SCH (10:35)
[2021-06-28] MEDS ORDERED: diphenhydrAMINE 50 MG/ML VIAL ONE (12:22)
[2021-06-28] MEDS ORDERED: MIDAZOLAM 5 MG/5 ML VIAL ONE (12:23)
[2021-06-28] MEDS ORDERED: fentaNYL citrate 0.05 MG/ML VIAL ONE (12:23)
[2021-06-28] MEDS ORDERED: fentaNYL citrate 0.05 MG/ML VIAL IVP ONE (13:20)
[2021-06-28] MEDS ORDERED: MIDAZOLAM 2 MG/2 ML VIAL IVP ONE (13:20)
== END 2021-06-28 13:24 | disposition home or self-care (01) ==
LOC: MDS 10:05 → MMU 10:08 → MDS 13:24
PROVIDERS: ATTEND Internal Medicine Gastroenterology
DX: K74.60 Unspecified cirrhosis of liver (principal); I85.10 Secondary esophageal varices without bleeding; D59.9 Acquired hemolytic anemia, unspecified; Z20.822 Contact with and (suspected) exposure to COVID-19; Z79.899 Other long term (current) drug therapy
CPT/HCPCS: 43235; 87426; J2250; J3010; J1200